=== PATIENT | female | born 1990 | race Caucasian/White ===

== ENCOUNTER 2019-03-26 11:52 | Day surgery (SDC) | payer OTHER ==
[2019-03-23 10:36] LABS: HEMOGLOBIN 12.2 g/dL (12.0-15.5); MEAN CORPUSCULAR HEMOGLOBIN 27.9 pg (27.0-33.4); MEAN CORPUSCULAR HGB CONC 33.1 g/dL (32.0-36.0); MEAN CORPUSCULAR VOLUME 84 fl (80-97); PLATELET COUNT 345 10^3/uL (150-450); RED BLOOD COUNT 4.38 10^6/uL (3.72-5.28); WHITE BLOOD COUNT 8.6 10^3/uL (4.0-10.5)
[~2019-03-26 11:52] MED LIST: CEFAZOLIN 1 GM/D5W RTU 1 GM/50 ML RTUPB IV PRN; LACTATED RINGERS 1000 ML IV PRN; LIDOCAINE 0.5% INJ-PF (5 MG/ML) 50 ML SDV SUBCUT PRN
[2019-03-26 13:13] LABS: ALANINE AMINOTRANSFERASE 20 U/L (9-52); ALBUMIN 4.1 g/dL (3.5-5.0); ALKALINE PHOSPHATASE 87 U/L (38-126); ANION GAP 11 (5-19); ASPARTATE AMINO TRANSFERASE 15 U/L (14-36); BILIRUBIN,DIRECT 0.2 mg/dL (0.0-0.4); BILIRUBIN,TOTAL 0.4 mg/dL (0.2-1.3); BLOOD UREA NITROGEN 10 mg/dL (7-20); CALCIUM 9.3 mg/dL (8.4-10.2); CARBON DIOXIDE 21 mmol/L (22-30); CHLORIDE 108 mmol/L (98-107); GLUCOSE 87 mg/dL (75-110); SODIUM 139.6 mmol/L (137-145); TOTAL PROTEIN 7.2 g/dL (6.3-8.2)
[2019-03-26] MEDS ORDERED: CEFAZOLIN 1 GM/D5W RTU 1 GM/50 ML RTUPB IV ONE (14:04)
[2019-03-26] MEDS ORDERED: FENTANYL CITRATE INJ/PF 100 MCG/2 ML AMPUL ONE ×2 (14:25→15:12)
[2019-03-26] MEDS ORDERED: LIDOCAINE 2% INJ-PF (100 MG/5 ML) SYRINGE ONE (14:25)
[2019-03-26] MEDS ORDERED: DEXAMETHASONE SOD PHOSPHATE INJ 4 MG/1 ML VIAL ONE (14:25)
[2019-03-26] MEDS ORDERED: ONDANSETRON HCL INJ/PF 4 MG/2 ML SDV ONE (14:25)
[2019-03-26] MEDS ORDERED: MIDAZOLAM 2 MG/2 ML INJ ONE (14:25)
[2019-03-26] MEDS ORDERED: PROPOFOL INJ 200 MG/20 ML VIAL IV ONE (14:26)
[2019-03-26] MEDS ORDERED: FENTANYL CITRATE INJ/PF 100 MCG/2 ML AMPUL IV PRN (14:59)
[2019-03-26] MEDS ORDERED: MEPERIDINE HCL/PF INJ 25 MG/1 ML DISP.SYRIN IV PRN (14:59)
[2019-03-26] MEDS ORDERED: OXYCODONE-ACETAMINOPHEN 5-325 MG TABLET PO PRN ×4 (14:59→15:56)
[2019-03-26] MEDS ORDERED: MORPHINE SULFATE 10 MG/ML INJ IV PRN (14:59)
[2019-03-26] MEDS ORDERED: PROMETHAZINE HCL INJ 25 MG/1 ML VIAL IV PRN ×2 (14:59→15:56)
[2019-03-26] MEDS ORDERED: DIPHENHYDRAMINE HCL 50 MG/ML VIAL IV PRN (14:59)
[2019-03-26] MEDS: FENTANYL CITRATE INJ/PF 100 MCG/2 ML AMPUL ONE ×2 (15:30→15:35)
[2019-03-26] MEDS ORDERED: ACETAMINOPHEN 1,000 MG/100 ML RTUPB IV ONE (15:41)
[2019-03-26] MEDS ORDERED: KETOROLAC TROMETHAMINE INJ/PF 30 MG/1 ML SDV ONE (15:41)
[2019-03-26] MEDS ORDERED: OXYCODONE-ACETAMINOPHEN 5-325 MG TABLET ONE (16:18)
--- NOTE | 2019-03-26 16:39 | OPERATIVE REPORT E ---
Operative Report NAME: BEENA FISHER : 1990 AGE: 28Y DATE OF SURGERY: 03/26/2019 ROOM: PREOPERATIVE DIAGNOSIS: DYSFUNCTIONAL UTERINE BLEEDING. POSTOPERATIVE DIAGNOSIS: DYSFUNCTIONAL UTERINE BLEEDING. OPERATION: D and C, HYSTEROSCOPY, AND NOVASURE. SURGEON: CLAYTON LANCE M.D. ANESTHESIA: General. PERTINENT HISTORY/OPERATIVE FINDINGS: This is a 28-year-old multiparous female who had been having trouble with crampy, irregular bleeding, and ultimately decided to proceed with a D and C, hysteroscopy, and NovaSure. She was aware of the risks and benefits. At the time of surgery, the vagina appeared to be normal. The cervix appeared to be normal. The uterus was anterior, normal size and shape. Adnexa negative. PROCEDURE: The patient was brought into the OR, placed on the table in a supine position and induced under general anesthesia. Following this, she was repositioned, prepped and draped in sterile fashion. The bladder was drained of about 25 mL of clear yellow urine. A pelvic under anesthesia was performed. A bivalve speculum was inserted and the cervix was grasped on its anterior lip with single-tooth tenaculum. It became apparent that the bivalve speculum was not going to be adequate, so we switched over to a long weighted speculum. The tenaculum was repositioned and also an Allis was positioned on the anterior lip of the cervix. The uterus was sounded to 9 cm. The cervix measured 4 cm, giving us a cavity length of 5 cm. It was dilated to a #8 Hegar dilator. The uterine cavity was curetted, and a hysteroscope was inserted through the cervix and into the endometrial cavity, and the cavity was visualized. There was no evidence of any abnormal pathology at this point in time. A few loose strands of the endometrium were still up inside the uterus. We used polyp forceps to remove the remaining tissue. Having accomplished this, the excess fluid was suctioned out of the uterus. The NovaSure was opened up and it was gently slid through the endo and ectocervix, and carried up to the top of the fundus. It was gently opened up. We went north, south, east, west, and rotated about 45 degrees in each direction, and pulled back in between 3 times. It gave us a cavity width of 4, which gave us a power of 110. The plunger was moved forward, ensuring the cavity. The cavity was tested and then it was enabled. We had a burn time of 1 minute 17 seconds, as stated with a power of 110. This terminated this part of the procedure. The NovaSure was closed and removed. The hysteroscope was then gently inserted through the cervix. Saline was restarted. We checked the uterine lining. We had a good burn at this point of time. The excess saline was suctioned out. The patient had the tenaculum and the Allis removed. There was a little bit of bleeding on the anterior lip; this was treated with Monsel's. She tolerated it well. We removed the speculum. The patient was placed back in supine position. Anesthesia was discontinued and she was transferred to the recovery room in satisfactory condition. DICTATING PHYSICIAN: CLAYTON LANCE M.D. [id number] PHY#: [id number] ID: [id number] JOB#: [id number] ACCT: [id number] cc:CLAYTON LANCE M.D. >
[2019-03-26 17:16] VITALS: BP 126/79
== END 2019-03-26 17:15 | disposition home or self-care (01) ==
LOC: OROUT 11:52
PROVIDERS: ATTEND Obstetrics & Gynecology
DX: N93.8 Other specified abnormal uterine and vaginal bleeding (principal); Z79.899 Other long term (current) drug therapy
CPT/HCPCS: 36415 ×2; 85027; 81025; 80053; 88305 ×2; 58563; J2250; J0690; J1100; J3010; J2001; J1885; J2405; J2704; J0131; 952